=== PATIENT | male | born 1945 | race African-American/Black ===

== ENCOUNTER 2016-10-29 13:15 | Inpatient (IN) | payer OTHER, MEDICAID ==
[~2016-10-29] VITALS: Ht 185.4 cm; Wt 71.2 kg
[~2016-10-29 13:15] MED LIST: ACET-3161 PO; ALBU18HF2 IH; ALLO100T PO; AMLODIPINE; CYAN10009 PO; D-ME118S13 PO; FISH1CAP63 PO; FOLIC ACID PO; IOHEXOL-350 100 ML BOTTLE ONE; METOPROLOL PO; OMEPRAZOLE PO; SODIUM CHLORIDE 0.9% 10ML VIAL ONE; TERAZOSIN PO
[2016-10-29] MEDS ORDERED: SODIUM CHLORIDE 0.9% 500 ML IV ONE (15:14)
[2016-10-29] MEDS ORDERED: IPRATROPIUM/ALBUTEROL 0.5-3(2.5)MG/3ML NEB HHN ONE (15:30)
[2016-10-29 16:12] LABS: BASOPHILS % 0.6 % (0.0-2.0); EOSINOPHILS % 0.2 % (0.0-5.0); LYMPHOCYTES % 21.7 % (20.0-50.0); MEAN CORPUSCULAR HEMOGLOBIN 17.8 pg (28.0-32.0); MEAN CORPUSCULAR VOLUME 61.9 fL (80.0-94.0); MEAN PLATELET VOLUME 8.8 fl (7.4-10.4); MONOCYTES % 8.9 % (2.0-8.0); NEUTROPHILS % 68.6 % (40.0-76.0); PLATELET 56 x1000/uL (130-400); RED BLOOD CELL COUNT 2.14 mill/uL (4.7-6.1); RED CELL DISTRIBUTION WIDTH 22.8 % (11.6-14.6)
[2016-10-29 16:16] LABS: CARBON DIOXIDE 21 mEq/L (21-32); CHLORIDE 104 mEq/L (98-107)
[2016-10-29 16:23] LABS: CREATINE KINASE 214 IU/L (39-308); TROPONIN I < 0.02 ng/mL (0.00-0.04)
[2016-10-29 16:25] LABS: HEMATOCRIT. 13.3 % (42.0-52.0); HEMOGLOBIN. 3.8 g/dL (14.0-18.0)
[2016-10-29 16:53] LABS: PLATELET ESTIMATE MARKEDLY DECREASED
[2016-10-29 17:03] LABS: D-DIMER < 0.19 mg/L FEU (<0.50); INR 1.7; PARTIAL THROMBOPLASTIN TIME 26.3 sec (23.4-31.0)
[2016-10-29] MEDS ORDERED: PANTOPRAZOLE SODIUM 40 MG/VIAL IV ONE (17:15)
[2016-10-29 17:29] LABS: TOTAL IRON BINDING CAPACITY 539 ug/dL (250-450)
[2016-10-29 21:00] VITALS: BP 125/62
[2016-10-29 21:25] VITALS: BP 125/62
[2016-10-29 21:40] VITALS: BP 139/66
[2016-10-29] MEDS ORDERED: LOSA100T14 PO (21:50)
[2016-10-29] MEDS ORDERED: PANT40TA4 PO (21:51)
[2016-10-29] MEDS ORDERED: RIVA20TA PO (21:51)
[2016-10-29 22:00] VITALS: BP 130/57
[2016-10-29 22:40] VITALS: BP 146/77
[2016-10-29] MEDS ORDERED: HYDROCODONE/ACETAMINOPHEN 5/325MG TABLET PO PRN (22:45)
[2016-10-29] MEDS ORDERED: LACTULOSE 20G/30ML UDC PO PRN (22:45)
[2016-10-29 23:35] LABS: VITAMIN B12 SERUM 692 pg/mL (211-911)
[2016-10-29 23:40] VITALS: BP 110/44
[2016-10-30] VITALS (25 sets, daily range): BP systolic 106–146; BP diastolic 45–82
[2016-10-30] MEDS: DEXT 5%/0.45% NACL 1000ML 1,000 ML IV SCH ×2 (03:21→20:29)
[2016-10-30] MEDS ORDERED: PNEUMOCOCCAL 23-VAL P-SAC VAC 0.5 ML IM ONE (06:00)
[2016-10-30 07:17] LABS: CARBON DIOXIDE 24 mEq/L (21-32); CHLORIDE 109 mEq/L (98-107)
[2016-10-30 08:52] LABS: MEAN CORPUSCULAR HEMOGLOBIN 20.5 pg (28.0-32.0); MEAN CORPUSCULAR VOLUME 66.4 fL (80.0-94.0); MEAN PLATELET VOLUME 8.9 fl (7.4-10.4); RED BLOOD CELL COUNT 2.12 mill/uL (4.7-6.1); RED CELL DISTRIBUTION WIDTH 26.5 % (11.6-14.6)
[2016-10-30] MEDS: FISH OIL/OMEGA-3 FATTY ACIDS 1000MG CAPSULE PO SCH (09:00)
[2016-10-30] MEDS: CYANOCOBALAMIN 1000MCG TABLET PO SCH (09:00)
[2016-10-30] MEDS: LOSARTAN POTASSIUM 50 MG TABLET PO SCH (09:00)
[2016-10-30] MEDS: FOLIC ACID 1MG TABLET PO SCH (09:00)
[2016-10-30] MEDS ORDERED: PANTOPRAZOLE SODIUM 40 MG/VIAL IV SCH (09:00)
[2016-10-30 09:31] LABS: HEMATOCRIT. 14.1 % (42.0-52.0); HEMOGLOBIN. 4.4 g/dL (14.0-18.0); PLATELET 39 x1000/uL (130-400)
[2016-10-30] MEDS ORDERED: SORBITOL 70% SOLN 30ML PO SCH ×2 (16:00→20:00)
[2016-10-30] MEDS ORDERED: BISACODYL 5MG TABLET PO SCH ×3 (16:00→20:09)
[2016-10-30 16:17] LABS: PLATELET ESTIMATE MARKEDLY DECREASED
[2016-10-30] MEDS: FERROUS SULFATE 325MG TABLET PO SCH (18:00)
[2016-10-30] MEDS: PANTOPRAZOLE SODIUM 40 MG/VIAL IV SCH (20:12)
[2016-10-30] MEDS: TERAZOSIN HCL 1MG CAPSULE PO SCH (20:13)
[2016-10-30] MEDS: ASCORBIC ACID 500 MG TABLET PO SCH (20:13)
[2016-10-30 22:12] LABS: HEMATOCRIT 21.5 % (42.0-52.0)
[2016-10-30 22:18] LABS: HEMOGLOBIN 6.7 g/dL (14.0-18.0)
[2016-10-31] VITALS (14 sets, daily range): BP systolic 115–160; BP diastolic 45–89
[2016-10-31] MEDS: FERROUS SULFATE 325MG TABLET PO SCH ×3 (08:00→17:04)
[2016-10-31 08:19] LABS: INR 1.2; PARTIAL THROMBOPLASTIN TIME 22.4 sec (23.4-31.0); PROTHROMBIN TIME 12.4 sec (9.4-11.6)
[2016-10-31 08:52] LABS: BASOPHILS % 1.2 % (0.0-2.0); EOSINOPHILS % 3.4 % (0.0-5.0); HEMOGLOBIN. 8.9 g/dL (14.0-18.0); LYMPHOCYTES % 17.5 % (20.0-50.0); MEAN CORPUSCULAR HEMOGLOBIN 25.2 pg (28.0-32.0); MEAN CORPUSCULAR VOLUME 76.3 fL (80.0-94.0); MEAN PLATELET VOLUME 8.7 fl (7.4-10.4); MONOCYTES % 10.7 % (2.0-8.0); NEUTROPHILS % 67.2 % (40.0-76.0); RED BLOOD CELL COUNT 3.54 mill/uL (4.7-6.1); RED CELL DISTRIBUTION WIDTH 28.3 % (11.6-14.6)
[2016-10-31] MEDS: LOSARTAN POTASSIUM 50 MG TABLET PO SCH (08:54)
[2016-10-31] MEDS: CYANOCOBALAMIN 1000MCG TABLET PO SCH (08:55)
[2016-10-31] MEDS: FOLIC ACID 1MG TABLET PO SCH (08:55)
[2016-10-31] MEDS: FISH OIL/OMEGA-3 FATTY ACIDS 1000MG CAPSULE PO SCH (08:55)
[2016-10-31] MEDS: ASCORBIC ACID 500 MG TABLET PO SCH ×2 (08:55→20:07)
[2016-10-31] MEDS: PANTOPRAZOLE SODIUM 40 MG/VIAL IV SCH ×2 (09:01→20:06)
[2016-10-31] MEDS ORDERED: MIDAZOLAM HCL 5 MG/5 ML VIAL ONE (12:46)
[2016-10-31] MEDS ORDERED: FENTANYL CITRATE/PF 50MCG/ML 2ML VIAL ONE (12:46)
[2016-10-31] MEDS ORDERED: SIMETHICONE 40 MG/0.6 ML 30ML ONE ×2 (12:46→16:05)
[2016-10-31] MEDS ORDERED: MIDAZOLAM HCL 5 MG/5 ML VIAL IV PRN (12:49)
[2016-10-31] MEDS ORDERED: FENTANYL CITRATE/PF 50MCG/ML 2ML VIAL IV PRN (12:49)
[2016-10-31 14:28] LABS: PLATELET 40 x1000/uL (130-400)
[2016-10-31] MEDS ORDERED: SODIUM CHLORIDE 0.9% 10ML VIAL ONE (16:05)
[2016-10-31] MEDS: TERAZOSIN HCL 1MG CAPSULE PO SCH (20:07)
[2016-11-01] VITALS (12 sets, daily range): BP systolic 111–155; BP diastolic 52–99
[2016-11-01 07:06] LABS: HAPTOGLOBIN 110 mg/dL (30-200)
[2016-11-01] MEDS: LOSARTAN POTASSIUM 50 MG TABLET PO SCH (09:23)
[2016-11-01] MEDS: PANTOPRAZOLE SODIUM 40 MG/VIAL IV SCH ×2 (09:23→20:20)
[2016-11-01] MEDS: FISH OIL/OMEGA-3 FATTY ACIDS 1000MG CAPSULE PO SCH (09:23)
[2016-11-01] MEDS: CYANOCOBALAMIN 1000MCG TABLET PO SCH (09:23)
[2016-11-01] MEDS: FOLIC ACID 1MG TABLET PO SCH (09:23)
[2016-11-01] MEDS: FERROUS SULFATE 325MG TABLET PO SCH ×3 (09:23→17:13)
[2016-11-01] MEDS: ASCORBIC ACID 500 MG TABLET PO SCH ×2 (09:23→20:19)
[2016-11-01 09:53] LABS: BASOPHILS % 1.7 % (0.0-2.0); EOSINOPHILS % 3.9 % (0.0-5.0); HEMATOCRIT. 27.6 % (42.0-52.0); HEMOGLOBIN. 8.8 g/dL (14.0-18.0); LYMPHOCYTES % 22.3 % (20.0-50.0); MEAN CORPUSCULAR HEMOGLOBIN 24.8 pg (28.0-32.0); MEAN CORPUSCULAR VOLUME 77.3 fL (80.0-94.0); MEAN PLATELET VOLUME 8.8 fl (7.4-10.4); MONOCYTES % 9.9 % (2.0-8.0); NEUTROPHILS % 62.2 % (40.0-76.0); RED BLOOD CELL COUNT 3.57 mill/uL (4.7-6.1); RED CELL DISTRIBUTION WIDTH 28.7 % (11.6-14.6)
[2016-11-01 13:09] LABS: PLATELET 46 x1000/uL (130-400)
[2016-11-01 13:10] LABS: PLATELET ESTIMATE MARKEDLY DECREASED
[2016-11-01] MEDS: TERAZOSIN HCL 1MG CAPSULE PO SCH (20:20)
[2016-11-02] VITALS (10 sets, daily range): BP systolic 120–156; BP diastolic 58–85
[2016-11-02 06:47] LABS: HEMOGLOBIN 9.1 g/dL (14.0-18.0)
[2016-11-02] MEDS: FOLIC ACID 1MG TABLET PO SCH (08:39)
[2016-11-02] MEDS: ASCORBIC ACID 500 MG TABLET PO SCH (08:39)
[2016-11-02] MEDS: CYANOCOBALAMIN 1000MCG TABLET PO SCH (08:39)
[2016-11-02] MEDS: FISH OIL/OMEGA-3 FATTY ACIDS 1000MG CAPSULE PO SCH (08:39)
[2016-11-02] MEDS: FERROUS SULFATE 325MG TABLET PO SCH ×2 (08:39→12:40)
[2016-11-02] MEDS: LOSARTAN POTASSIUM 50 MG TABLET PO SCH (08:39)
[2016-11-02] MEDS: PANTOPRAZOLE SODIUM 40 MG/VIAL IV SCH (08:39)
[2016-11-02 12:36] LABS: BASOPHILS % 1.3 % (0.0-2.0); EOSINOPHILS % 3.4 % (0.0-5.0); HEMATOCRIT. 28.1 % (42.0-52.0); LYMPHOCYTES % 17.5 % (20.0-50.0); MEAN CORPUSCULAR HEMOGLOBIN 25.2 pg (28.0-32.0); MEAN CORPUSCULAR VOLUME 78.7 fL (80.0-94.0); MEAN PLATELET VOLUME 8.3 fl (7.4-10.4); MONOCYTES % 10.5 % (2.0-8.0); NEUTROPHILS % 67.3 % (40.0-76.0); PLATELET 70 x1000/uL (130-400); RED BLOOD CELL COUNT 3.58 mill/uL (4.7-6.1); RED CELL DISTRIBUTION WIDTH 28.8 % (11.6-14.6)
[2016-11-02 12:57] LABS: CARBON DIOXIDE 22 mEq/L (21-32); CHLORIDE 107 mEq/L (98-107)
[2016-11-03 13:12] LABS: IMMUNOGLOBULIN A 407 mg/dL (61-437); IMMUNOGLOBULIN G 1238 mg/dL (700-1600); IMMUNOGLOBULIN M 28 mg/dL (15-143)
[2016-11-04 15:09] LABS: ANTI-NUCLEAR ANTIBODIES DIRECT Negative (Negative)
[2016-11-05 10:12] LABS: HLA CLASS 1 ANTIBODY Negative (Negative); IIb/IIIa ANTIBODY Negative (Negative); Ia/IIa ANTIBODY Negative (Negative); Ib/IX ANTIBODY Negative (Negative)
== END 2016-11-02 18:15 | disposition home or self-care (01) | DRG 812 ==
LOC: ER 15:13 → 5EST 17:20 → EDBEDREQSVC 17:24 → EDBEDREQ 17:26 → ENRESERV 17:34 → 5EST 22:49
PROVIDERS: ADMIT Internal Medicine; ATTEND Internal Medicine
PROC: 30233N1 Transfusion of Nonautologous Red Blood Cells into Peripheral Vein, Percutaneous Approach (ICD-10-PCS; principal; 2016-10-29)
PROC: 0DB68ZX Excision of Stomach, Via Natural or Artificial Opening Endoscopic, Diagnostic (ICD-10-PCS; 2016-10-31)
PROC: 0DBN8ZZ Excision of Sigmoid Colon, Via Natural or Artificial Opening Endoscopic (ICD-10-PCS; 2016-10-31)
DX: D50.9 Iron deficiency anemia, unspecified (principal); D69.59 Other secondary thrombocytopenia; K74.60 Unspecified cirrhosis of liver; I10 Essential (primary) hypertension; K29.60 Other gastritis without bleeding; K44.9 Diaphragmatic hernia without obstruction or gangrene; K64.8 Other hemorrhoids; M10.9 Gout, unspecified; Z79.01 Long term (current) use of anticoagulants; Z86.711 Personal history of pulmonary embolism; Z86.718 Personal history of other venous thrombosis and embolism; Z87.11 Personal history of peptic ulcer disease; Z88.8 Allergy status to other drugs, medicaments and biological substances; Z79.899 Other long term (current) drug therapy
CPT/HCPCS: 36415; 71010; 71250; 71275; 74176; 80048; 80053; 82270; 82550; 82607; 82728; 82784; 83010; 83540; 83550; 83605; 83615; 83690; 83880; 84443; 84484; 85014; 85018; 85025; 85044; 85379; 85610; 85730; 86022; 86038; 86334; 86850; 86900; 86920; 87040; 88305; 88313; 90732; 93005; 96361; 96374; 99152; 99153; 99285; A4216; C9113; J2250; J3010; J3490; J7040; J7050; J7620; P9016; Q9967

== ENCOUNTER 2022-12-01 16:56 | Emergency (ER) | payer MEDICARE, MEDICAID ==
[~2022-12-01] VITALS: Ht 180.3 cm; Wt 87.0 kg
[~2022-12-01 16:56] MED LIST changes: -ALBU18HF2 IH; -ALLO100T PO; +AMLO10TA80 MT; -AMLODIPINE; +ASPI-1406 PO; +CYAN-50 PO; -CYAN10009 PO; -D-ME118S13 PO; +FERR325T30 PO; -FOLIC ACID PO; +HYDR12.54 PO; -IOHEXOL-350 100 ML BOTTLE ONE; +LACT10SO44 PO; +METF-873 PO; -METOPROLOL PO; -OMEPRAZOLE PO; +P20 MT; +PANT40TA51 PO; -SODIUM CHLORIDE 0.9% 10ML VIAL ONE; +TAMS-11 PO; +TERA2CAP4 PO; -TERAZOSIN PO
[2022-12-01 16:58] VITALS: O2SAT 99
[2022-12-01 17:40] LABS: HEMATOCRIT. 34.7 % (42.0-52.0); HEMOGLOBIN. 11.1 g/dL (14.0-18.0); MEAN CORPUSCULAR HEMOGLOBIN 25.2 pg (28.0-32.0); MEAN CORPUSCULAR HGB CONC 31.9 g/dL (31.0-37.0); MEAN CORPUSCULAR VOLUME 79.2 fL (80.0-94.0); PLATELET 199 x1000/uL (130-400); RED BLOOD CELL COUNT 4.38 mill/uL (4.7-6.1); RED CELL DISTRIBUTION WIDTH 17.7 % (11.6-14.6); WHITE BLOOD COUNT 13.8 x1000/uL (4.5-11.0)
[2022-12-01 17:45] LABS: DIFFERENTIAL COMMENT 1
[2022-12-01 17:55] LABS: CHLORIDE 98 mEq/L (98-107); INDEX HEMOLYSI 1 (1-3); INDEX ICTERIC 1 (1-4); INDEX LIPEMIC 1 (1-3); POTASSIUM 3.2 mEq/L (3.5-5.1); SODIUM 133 mEq/L (136-145)
[2022-12-01 18:00] LABS: MICROCYTOSIS 1+; PLATELET ESTIMATE NORMAL
[2022-12-01 18:02] LABS: ALANINE AMINOTRANSFERASE 18 IU/L (13-61); ALBUMIN 2.6 g/dL (3.4-5.0); ASPARTATE AMINOTRANSFERASE 18 IU/L (15-37); BILIRUBIN TOTAL 0.8 mg/dL (0.1-1.0); CALCIUM 7.8 mg/dL (8.5-10.1); CARBON DIOXIDE 24 mEq/L (21-32); CREATININE 0.8 mg/dL (0.6-1.3); GLUCOSE 125 mg/dL (70-105); PROTEIN TOTAL 6.9 g/dL (6.0-8.3); UREA NITROGEN BLOOD 12 mg/dL (7-21)
[2022-12-01] MEDS: ACETAMINOPHEN 325MG TABLET PO NR ×2 (18:08→22:58)
[2022-12-01] MEDS ORDERED: POTASSIUM CHLORIDE 20MEQ TABLET SR PO NR (18:15)
[2022-12-01] MEDS ORDERED: LIDOCAINE HCL 1% 20ML VIAL (Pyxis) INJ INFIL STA (20:21)
[2022-12-01 22:53] LABS: BODY FLUID MONOCYTES 45 %
[2022-12-01 22:58] LABS: BODY FLUID RBC 56250 /cu mm (0-2000); BODY FLUID WBC 528 /cu mm (0-200)
[2022-12-01] MEDS ORDERED: NAPR-681 MT (23:15)
[2022-12-01 23:29] LABS: CLARITY URINE CLEAR (CLEAR); COLOR URINE DARK YELLOW (YELLOW); GLUCOSE URINE NEGATIVE (NEGATIVE); KETONES URINE 1+ (NEGATIVE); LEUKOCYTE ESTERASE URINE NEGATIVE (NEGATIVE); NITRITE URINE NEGATIVE (NEGATIVE); OCCULT BLOOD URINE NEGATIVE (NEGATIVE); PROTEIN URINE TRACE (NEGATIVE); SPECIFIC GRAVITY URINE 1.015 (1.005-1.030)
[2022-12-01 23:32] LABS: BACTERIA URINE NONE SEEN; WBC URINE 0-2 /hpf (0-2); YEAST URINE NONE SEEN
[2022-12-01 23:48] LABS: RBC URINE 0-2 /hpf (0-2)
[2022-12-01 23:49] LABS: SQUAMOUS EPITHELIAL CELL URINE FEW /lpf (RARE/1+)
[2022-12-02 00:37] VITALS: BP 146/85; PULSE 98; RESP 17; TEMP 98.4
[2022-12-02 01:49] LABS: *AMPHETAMINES SCREEN URINE NEGATIVE (NEGATIVE); *BARBITURATES SCREEN URINE NEGATIVE (NEGATIVE); *BENZODIAZEPINES SCREEN URINE NEGATIVE (NEGATIVE); *COCAINE SCREEN URINE PRESUMTIVE POSITIVE (NEGATIVE); CANNABINOID URINE SCREEN NEGATIVE (NEGATIVE); ECSTASY MDMA SCREEN URINE NEGATIVE (NEGATIVE); OPIATES URINE SCREEN NEGATIVE (NEGATIVE); PHENCYCLIDINE URINE SCREEN NEGATIVE (NEGATIVE)
== END 2022-12-02 00:38 | disposition home or self-care (01) ==
LOC: ER 16:56
DX: M25.521 Pain in right elbow (principal); E11.9 Type 2 diabetes mellitus without complications; I10 Essential (primary) hypertension; Z79.899 Other long term (current) drug therapy
CPT/HCPCS: 99284; 20605; 80053; 80305; 81003; 85025; 87070; 87205; 89050; 89060; 36415; 73080; 73110; J3490